=== PATIENT | male | born 2000 | race Caucasian/White ===

== ENCOUNTER 2023-12-01 13:10 | Emergency (ER) | payer OTHER, SELFPAY ==
[2023-12-01 13:14] VITALS: BP 136/92; PULSE 85; RESP 15; TEMP 35.5; O2SAT 100
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
[2023-12-01] MEDS: Ketorolac 15 MG/ML VIAL IM (13:37)
--- NOTE | 2023-12-01 13:51 | DI.RAD_ITS ---
Exam(s) XR KNEE RT 3V AP,LAT,NICK EXAM: XR KNEE RT 3V AP,LAT,NICK CLINICAL HISTORY: pain s/p fall off 4 ham. TECHNIQUE: 2D digital imaging was performed of the right knee. Three views obtained. AP, lateral an d PA tunnel views were obtained. COMPARISON: CR,XR XR KNEE LT 3V AP,LAT,NICK from 12/01/2023 FINDINGS: BONES: No acute fracture is present. No bony destructive lesion is seen. JOINTS: The knee is normally aligned. No joint effusion is seen. SOFT TISSUE: Normal. No radiopaque foreign bodies. IMPRESSION: Unremarkable radiographs of the right knee. No radiopaque foreign bodies are identified. DATA REPOSITORY: RADIATION DOSE DELIVERED:
[2023-12-01] MEDS: Tetanus & Diphtheria Tox,ADULT 0.5 ML VIAL IM (14:04)
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
--- NOTE | 2023-12-01 14:41 | DI.VRAD_ITS ---
PROCEDURE INFORMATION: Exam: XR Left Knee Exam date and time: 12/01/2023 1:47 PM Age: 23 years old Clinical indication: Injury or trauma; Other: Pain S/P fall off 4 ham TECHNIQUE: Imaging protocol: Radiologic exam of the left knee. Views: 3 views. COMPARISON: No relevant prior studies available. FINDINGS: Bones/joints: No fractures. Soft tissues: Radiopaque foreign body is present in the lateral anterior soft tissues. Possibly within the joint space. IMPRESSION: Radiopaque foreign bodies present in the lateral anterior soft tissues. Possibly within the joint space. Dictated and Authenticated by: Real Reich MD. Ordering:UMA Love MD
[2023-12-01] MEDS: Amoxicillin 875/Clav. 125 TAB PO (15:08)
== END 2023-12-01 15:08 | disposition home or self-care (01) ==
PROVIDERS: Emergency Provider Emergency Medicine
DX: S80.211A Abrasion, right knee, initial encounter (principal); S80.212A Abrasion, left knee, initial encounter; S40.811A Abrasion of right upper arm, initial encounter; S80.01XA Contusion of right knee, initial encounter; S80.02XA Contusion of left knee, initial encounter; S20.411A Abrasion of right back wall of thorax, initial encounter; S20.419A Abrasion of unspecified back wall of thorax, initial encounter; V86.55XA Driver of 3- or 4- wheeled all-terrain vehicle (ATV) injured in nontraffic accident, initial encounter
CPT/HCPCS: 73562; 90471; 90714; 96372; 99284; 99283; J1885